=== PATIENT | female | born 1960 | race Caucasian/White ===

== ENCOUNTER 2021-01-26 16:14 | Emergency (ER) | payer OTHER, SELFPAY ==
[2021-01-26 17:14] VITALS: BP 187/82; PULSE 90; RESP 18; TEMP 37.2; O2SAT 96; BMI 32.0
--- NOTE | 2021-01-26 17:32 | ED.GENADULT ---
HPI - General Adult General Chief complaint: General Medical Stated complaint: ?dehydration - sent by doctor Time Seen by Provider: 01/26/21 17:32 Source: patient Mode of arrival: ambulatory Limitations: no limitations History of Present Illness HPI narrative: Patient received Pietro Pietro vaccine 2 weeks ago was doing fine for 2 weeks started feeling nauseated with dry heaves for last 4 days feels weak with malaise. Denies any urinary symptoms no abdominal pain no cough no shortness of breath no fever/ chills Related Data Previous Rx's Medication Instructions Recorded ondansetron 4 mg PO Q6-8H PRN #5 tab 01/26/21 Allergies Allergy/AdvReac Type Severity Reaction Status Date / Time levofloxacin [Levaquin] Allergy Unknown joint Verified 03/06/16 00:00 swelling and pain No Known Allergies Allergy Unverified 06/22/20 16:02 Codeine Phosphate Allergy Unknown Uncoded 09/23/12 00:00 Review of Systems Review of Systems: Constitutional : No Weight loss, No Fever, No Chills ENT/Mouth : No sore throat, No Rhinorrhea Eyes: No Eye Pain, No Swelling Cardiovascular : No Chest Pain, no palpitations Respiratory : No Cough, No Sputum, no shortness of breath Gastrointestinal : +Nausea, No Vomiting, No Diarrhea, No abdominal Pain, no black stools Genitourinary : No Dysuria, No Urinary Frequency Musculoskeletal : No joint pain, No Myalgias, No Joint Swelling Skin : No Skin Lesions, No rash Neuro : +Weakness, No Numbness, No Dizziness, No Headache Psych : No Anxiety/Panic, No Depression Heme/Lymph: No Bruising, No Lymphadenopathy Endocrine : No Polyuria, No Polydipsia All other systems reviewed and are negative [facility] Social History Social History Advance Directives: No Advance Directives Information Provided: Yes Physical Exam Vital Signs: Vital Signs: Last Vital Signs Temp 98.9 F 01/26/21 17:14 Pulse 90 01/26/21 17:14 Resp 18 01/26/21 17:14 BP 187/82 H 01/26/21 17:14 Pulse Ox 96 01/26/21 17:14 Body Mass Index 32.0 Appearance: Alert. Oriented X3. No acute distress. Eyes: Pupils equal, round and reactive to light. ENT: Pharynx normal. Neck: Normal inspection. Neck supple. CVS: Normal heart rate and rhythm. Pulses normal. Respiratory: No respiratory distress. Breath sounds normal. Abdomen: Soft and nontender. Bowel sounds are present, no mass palpable, no CVA tenderness Skin: Skin warm and dry. Normal skin color. Normal skin turgor. Extremities: No lower extremity edema. Neuro: Oriented X 3. No motor deficit. No sensory deficit. Medical Decision Making MDM Narrative Medical decision making narrative: Patient nonspecific nausea no vomiting urine is negative repeat COVID is negative benign presentation abdomen soft nontender will discharge her home on Zofran likely viral etiology Lab Data Lab results reviewed: Yes I reviewed the patient's lab results. Labs: Lab Results 01/26/21 01/26/21 Range/Units 18:03 18:04 Urine Color YELLOW Urine Appearance CLEAR Urine pH 7.0 (5.0-8.0) Ur Specific [place] 1.015 (1.005-1.025) Urine Protein NEG (NEG-TRACE) MG/DL Urine Glucose (UA) NEG (NEG) MG/DL Urine Ketones NEG (NEG) MG/DL Urine Blood NEG (NEG) Urine Nitrite NEG (NEG) Ur Leukocyte Esterase NEG (NEG) COVID-19 (EDGAR) Negative (Negative) COVID-19 Clin Com See Note Discharge Plan Discharge Clinical Impression: Nausea & vomiting Qualifiers: Vomiting type: unspecified Vomiting Intractability: non-intractable Qualified Code(s): R11.2 - Nausea with vomiting, unspecified Patient Disposition: Home, Self-Care Instructions: Acute Nausea and Vomiting (ED) Additional Instructions: His symptoms are nonspecific likely viral in etiology. Nausea medication as advised drink plenty of fluids Prescriptions: New ondansetron 4 mg tablet,disintegrating 4 mg PO Q6-8H PRN (Reason: nausea and vomiting) Qty: 5 RF: 0
[2021-01-26 18:32] LABS: Glucose Urine UA NEG (NEG); Leukocyte Esterase Urine NEG (NEG); Nitrite Urine NEG (NEG); Specific Gravity - Urine 1.015 (1.005-1.025); Urine Blood NEG (NEG); Urine Ketones NEG (NEG); Urine Protein NEG (NEG-TRACE)
[2021-01-26 18:33] LABS: Appearance Urine CLEAR; Color Urine YELLOW
[2021-01-26 18:37] LABS: COVID-19 Test Negative (Negative)
== END 2021-01-26 19:22 | disposition home or self-care (01) ==
PROVIDERS: Emergency Provider Internal Medicine; PCP Hospitalist
DX: R11.2 Nausea with vomiting, unspecified (principal); Z20.822 Contact with and (suspected) exposure to COVID-19
CPT/HCPCS: 36415; 81003; 87635; 99283

== ENCOUNTER 2021-07-31 09:43 | Outpatient (REF) | payer OTHER, SELFPAY ==
[2021-08-01 11:26] LABS: Immunoglobulin A 205 mg/dL (47-310)
[2021-08-02 16:11] LABS: Transglutaminase Ab IgG <1.0 U/mL; Transglutaminase IgA <1.0 U/mL
[2021-08-04 10:06] LABS: Gliadin Deamidated IgA Ab 1.7 U/mL; Gliadin Deamidated IgG Ab <1.0 U/mL
[2021-08-04 11:51] LABS: Endomysial IgA Antibody Negative (Negative)
== END 2021-07-31 09:44 | disposition home or self-care (01) ==
LOC: HO.10HDL 09:43
PROVIDERS: Visit Provider Internal Medicine
DX: K58.8 Other irritable bowel syndrome (principal)
CPT/HCPCS: 36415; 82784; 83516; 86255; 86256

== ENCOUNTER 2021-08-20 08:44 | Day surgery (SDC) | payer OTHER, SELFPAY ==
[2021-08-14 10:55] VITALS: BMI 31.4
[2021-08-14 11:50] VITALS: BMI 31.1
[2021-08-20 09:20] VITALS: BP 118/64; PULSE 86; RESP 16; TEMP 36.9; O2SAT 99
[2021-08-20] MEDS: Lactated Ringers 1,000 ML 50 ML IVCONT (09:34)
--- NOTE | 2021-08-20 09:47 | P.CONAN_ITS ---
[facility] Past Medical History Medical History Anxiety and depression Hypothyroidism Insomnia Surgical History Surgical History Hx of colonoscopy History of Problems with Anesthesia: No Social History Social History Patient Tobacco Use Status: Never used Tobacco Use of substances other than those prescribed or required for medical reasons: No Are you DNR?: No Advance Directives: No Advance Directives Information Provided: Yes Advance Directives on File: No Meds Allergies Allergy/AdvReac Type Severity Reaction Status Date / Time codeine Allergy Unknown Verified 08/20/21 09:08 Active Medications: Current Medications Lactated Ringer's (Lr) 1,000 mls @ 50 mls/hr IVCONT .Q20H LARISSA Last Admin: 08/20/21 09:34 Dose: 50 mls/hr Documented by: Sodium Biphosphate/Sodium Phosphate (Sodium Phosphate,[place]-Dibasic 133 Ml Enema) 133 ml MT ONCE PRN PRN Reason: Poor Colonoscopy Prep Results Home Medications Medication Instructions Recorded Confirmed Last Taken Type citalopram 20 mg tablet 20 mg PO DAILY 08/14/21 08/20/21 08/20/21 08:00 History levothyroxine 75 mcg tablet 75 mcg PO DAILY 08/14/21 08/14/21 Unknown History (Levoxyl) trazodone 100 mg tablet 100 mg PO BEDTIME 08/14/21 08/14/21 Unknown History Exam Exam Date and Time: August 20, 2021 0947 Height,Weight and Vital Signs: Height 5 ft 2 in Weight 77.111 kg Last Vital Signs Temp 98.4 F 08/20/21 09:20 Pulse 86 08/20/21 09:20 Resp 16 08/20/21 09:20 BP 118/64 08/20/21 09:20 Pulse Ox 99 08/20/21 09:20 Airway Mallampati Class: II TM Dist: >3cm Neck ROM: Full Loose/Missing/Broken Teeth: No Heart: RRR Lungs: CTA Assessment and Plan Assessment Anesthesia Assessment: Anesthesia Plan Discussed and Chart Reviewed Final Anesthetic Review History of Problems with Anesthesia: No NPO: Yes ASA Class: II Final Preanesthetic Review: Meds/Allgs Chart Reviewed, Consent Obtained/Reviewed and Anes Risks/Benef Reviewed Patient Risk: Low Procedure Risk: Low Anesthetic Plan Anesthetic Plan: MAC: Disposition: Standard PACU
[2021-08-20 11:57] VITALS: BP 109/54; PULSE 84; RESP 13; TEMP 36.4; O2SAT 99
--- NOTE | 2021-08-20 11:58 | P.BOP_ITS ---
Brief Operative Note Date of Service: 08/20/21 Pre-op diagnosis: Screening, Irregular BM's Post-op diagnosis: other (R/O Microscopic colitis, Diverticulosis) Procedure: Colonoscopy to the cecum and TI with biopsies Surgeon: Yonny Najera Anesthesia: MAC Was an [employer] used for this Procedure?: No Estimated blood loss (mL): 3.0 Pathology: other (A. Ascending colon B. Descending colon) Condition: stable Disposition: PACU
[2021-08-20 12:13] VITALS: BP 116/66; PULSE 75; RESP 16; TEMP 36.4; O2SAT 100
--- NOTE | 2021-08-20 12:23 | OP_ITS ---
SURGEON: Yonny Najera MD INDICATIONS: The patient presents for evaluation of colorectal cancer screening and irregular bowel movements. Full consent has been obtained from her for this, including risks of bleeding and perforation. PREOPERATIVE DIAGNOSIS: POSTOPERATIVE DIAGNOSIS: PROCEDURE PERFORMED: Colonoscopy to cecum and terminal ileum with biopsies. ESTIMATED BLOOD LOSS: COMPLICATIONS: ANESTHESIA: Monitored anesthesia care. ASSISTANTS: SPECIMENS: PREOPERATIVE DIAGNOSES: Colorectal cancer screening and irregular bowel movements. POSTOPERATIVE DIAGNOSES: Colorectal cancer screening and irregular bowel movements, diverticulosis, rule out microscopic colitis, small internal hemorrhoids. DESCRIPTION OF PROCEDURE: The patient was placed in the left lateral decubitus position. The digital rectal exam revealed no abnormalities. The Olympus video pediatric colonoscope was entered into the rectum and advanced easily to the cecum. Once in the cecum, I did identify normal-appearing cecal pouch with appendiceal orifice and a normal-appearing ileocecal valve. The terminal ileum was cannulated and appeared normal. Scope was withdrawn back in the colon. The entire cecum and ileocecal valve appeared normal. The scope was slowly withdrawn assessing all mucosal surfaces carefully. Preparation was excellent. I did not visualize any sign of polyps, colitis, nor angiodysplasia. There was a mild amount of sigmoid diverticulosis. I did obtain random biopsies in the ascending and descending colon to rule out microscopic colitis. In the rectum, scope was retroflexed visualizing some small internal hemorrhoids, but no other pathology. The rectal mucosa appeared normal. The scope was straightened out and withdrawn from the patient. She tolerated the procedure well and was returned to recovery area in stable condition. IMPRESSION: 1. Mild sigmoid diverticulosis. 2. Small internal hemorrhoids. 3. Rule out microscopic colitis. PLAN: The results of the biopsies will be checked. At this point, she is doing well, but still has somewhat irregular bowel movements. I do suspect this reflects some irritable bowel syndrome in relation to the gastroenteritis she had earlier in the year. I did advise her to try some Metamucil or Citrucel fiber supplements on a regular basis with plenty of water. She should directly have another colonoscopy in 10 years for screening. She could otherwise see me on a p.r.n. basis. MD JOSEP Karimi/CORRY / [phone]
== END 2021-08-20 12:55 | disposition home or self-care (01) ==
PROVIDERS: PCP Hospitalist; Visit Provider Internal Medicine
PROC: 0DJD8ZZ Inspection of Lower Intestinal Tract, Via Natural or Artificial Opening Endoscopic (ICD-10-PCS; CPT 45378; principal; 2021-08-20 10:20)
DX: Z12.11 Encounter for screening for malignant neoplasm of colon (principal); K58.8 Other irritable bowel syndrome; K57.30 Diverticulosis of large intestine without perforation or abscess without bleeding; K64.8 Other hemorrhoids; F41.1 Generalized anxiety disorder; E03.9 Hypothyroidism, unspecified; Z80.1 Family history of malignant neoplasm of trachea, bronchus and lung; Z80.0 Family history of malignant neoplasm of digestive organs; Z79.899 Other long term (current) drug therapy
CPT/HCPCS: 45380; 88305

== ENCOUNTER 2023-11-20 12:04 | Emergency (ER) | payer OTHER, SELFPAY ==
[2023-11-20 12:13] VITALS: BP 134/72; PULSE 93; RESP 20; TEMP 36.3; O2SAT 97; BMI 28.3
--- NOTE | 2023-11-20 12:13 | ED_ITS ---
HPI - General Adult General Chief complaint: Abdominal Pain Stated complaint: Abd pain Related Data Home Medications Medication Instructions Recorded Confirmed citalopram 20 mg tablet 20 mg PO DAILY 08/14/21 08/20/21 levothyroxine 75 mcg tablet 75 mcg PO DAILY 08/14/21 08/14/21 (Levoxyl) trazodone 100 mg tablet 100 mg PO BEDTIME 08/14/21 08/14/21 Previous Rx's Medication Instructions Recorded ondansetron 4 mg disintegrating 4 mg PO Q6-8H PRN nausea and 01/26/21 tablet vomiting #5 tabs Allergies Allergy/AdvReac Type Severity Reaction Status Date / Time codeine Allergy Unknown Verified 11/20/23 12:13 PMFSH Past Medical History Medical History Anxiety and depression Hypothyroidism Insomnia Surgical History Hx of colonoscopy Social History Social History Patient Tobacco Use Status: Never used Tobacco Advance Directives: No Physical Exam ED Vital Signs: BMI result Body Mass Index 28.3 Course Course Course Narrative: This is a rapid medical exam: Additional HPI, ROS, PE not included below will be deferred to primary provider. Patient is a 62-year-old female presenting to the ED with complaint of LLQ abdominal pain since Friday. Denies nausea, vomiting, diarrhea. Referred to ED by Dr. Najera. Denies fever. Plan: labs, UA, CT Medications Administered Discontinued Medications Generic Name Dose Route Start Last Admin Trade Name Tomas PRN Reason Stop Dose Admin Acetaminophen 975 mg 11/20/23 14:14 11/20/23 14:16 Acetaminophen 325 Mg Tablet PO 11/20/23 14:15 975 mg ONCE ONE Administration Medical Decision Making Lab Data 11/20/23 12:31 11/20/23 12:31 Labs: Lab Results 11/20/23 11/20/23 Range/Units 12:31 16:18 WBC 8.1 (4.8-10.8) X10*3/uL RBC 4.14 L (4.20-5.50) X10*6/uL Hgb 12.7 (12.0-16.0) g/dl Hct 36.7 L (37.0-47.0) % MCV 88.6 (80.0-98.0) fL MCH 30.7 (27.0-33.0) pg MCHC 34.6 (31.0-35.0) g/dl RDW 12.7 (11.0-16.0) % Plt Count 253 (160-400) X10*3/uL MPV 9.6 (9.4-12.3) fL Immature Gran % (Auto) 0.2 (0.0-0.4) % Neut % (Auto) 72.3 (45-73) % Lymph % (Auto) 20.0 (20-40) % [place] % (Auto) 6.2 (2-11) % Eos % (Auto) 0.9 (0-4) % Baso % (Auto) 0.4 (0-2) % Lymph # (Auto) 1.6 (1.2-4.9) X10*3/uL [place] # (Auto) 0.5 (0.1-1.2) X10*3/uL Eos # (Auto) 0.1 (0.0-0.4) X10*3/uL Baso # (Auto) 0.0 (0.0-0.2) X10*3/uL Abs Immat Gran (auto) 0.02 (0.00-0.03) X10*3/uL Absolute Neuts (auto) 5.9 (2.0-8.3) x10*3/uL Absolute Nucleated RBC 0.000 (0.0-0.012) X10*3/uL Nucleated RBC % (auto) 0.0 (0.0-0.2) /100WBC Sodium 135 (135-145) mmol/L Potassium 3.9 (3.3-5.1) mmol/L Chloride 101 (96-108) mmol/L Carbon Dioxide 27 (22-29) mmol/L Anion Gap 11 L (12-20) BUN 16 (9-16) mg/dL Creatinine 0.84 (0.5-1.4) mg/dL Estim Creat Clear Calc 64.5 Estimated GFR > 60 Random Glucose 97 (60-115) mg/dL Calcium 9.5 (8.4-10.2) mg/dL Total Bilirubin 0.5 (0.0-1.0) mg/dL AST 16 (5-31) U/L ALT 14 (0-31) U/L Alkaline Phosphatase 77 (39-117) U/L Total Protein 7.3 (6.5-8.0) g/dL Albumin 4.2 (3.5-5.0) g/dL Urine Color Yellow Urine Appearance Clear Urine pH 6.5 (5.0-9.0) Ur Specific [place] 1.010 (1.005-1.025) Urine Protein Negative (Neg-Trace) mg/dL Urine Glucose (UA) Negative (Negative) mg/dL Urine Ketones Trace (Negative) mg/dL Urine Blood Negative (Negative) Urine Nitrite Negative (Negative) Ur Leukocyte Esterase Negative (Negative) Discharge Plan Discharge Clinical Impression: Abdominal pain Patient Disposition: Left W/O Completing Treatment Prescriptions: No Action ondansetron 4 mg tablet,disintegrating 4 mg PO Q6-8H PRN (Reason: nausea and vomiting) Qty: 5 0RF levothyroxine [Levoxyl] 75 mcg Tablet 75 mcg PO DAILY citalopram 20 mg Tablet 20 mg PO DAILY trazodone 100 mg Tablet 100 mg PO BEDTIME Discharge Date/Time: 11/20/23 20:35
[2023-11-20 12:35] LABS: MANUAL DIFF FLAG NO
[2023-11-20 12:37] LABS: Basophils Percent Auto 0.4 % (0-2); Eosinophils Absolute Auto 0.1 X10*3/uL (0.0-0.4); Eosinophils Percent Auto 0.9 % (0-4); Hematocrit 36.7 % (37.0-47.0); Hemoglobin 12.7 g/dl (12.0-16.0); Imm Gran Abs Auto 0.02 X10*3/uL (0.00-0.03); Imm Gran Pct Auto 0.2 % (0.0-0.4); Lymphocytes Absolute Auto 1.6 X10*3/uL (1.2-4.9); Mean Corpuscular HGB Conc 34.6 g/dl (31.0-35.0); Mean Corpuscular Hemoglobin 30.7 pg (27.0-33.0); Mean Corpuscular Volume 88.6 fL (80.0-98.0); Mean Platelet Volume 9.6 fL (9.4-12.3); Monocytes Absolute Auto 0.5 X10*3/uL (0.1-1.2); Monocytes Percent Auto 6.2 % (2-11); Neutrophils Absolute Auto 5.9 x10*3/uL (2.0-8.3); Neutrophils Percent Auto 72.3 % (45-73); Platelet Count 253 X10*3/uL (160-400); Red Blood Count 4.14 X10*6/uL (4.20-5.50); Red Cell Distribution Width 12.7 % (11.0-16.0); White Blood Count 8.1 X10*3/uL (4.8-10.8)
[2023-11-20 12:53] LABS: Alanine Aminotransferase 14 U/L (0-31); Albumin Level 4.2 g/dL (3.5-5.0); Alkaline Phosphatase 77 U/L (39-117); Anion Gap 11 (12-20); Aspartate Amino Transferase 16 U/L (5-31); Bilirubin Total 0.5 mg/dL (0.0-1.0); Blood Urea Nitrogen 16 mg/dL (9-16); Calcium 9.5 mg/dL (8.4-10.2); Carbon Dioxide 27 mmol/L (22-29); Chloride 101 mmol/L (96-108); Creatinine Clr Calc Pharmacy 64.5; Estimated Glomerular Filt Rate > 60; Glucose Random 97 mg/dL (60-115); Potassium 3.9 mmol/L (3.3-5.1); Sodium 135 mmol/L (135-145); Total Protein 7.3 g/dL (6.5-8.0)
[2023-11-20] MEDS: Acetaminophen 325 MG TABLET 975 MG PO (14:16)
[2023-11-20 14:17] VITALS: RESP 18
--- NOTE | 2023-11-20 16:23 | MHC.EDTECH ---
Patient urine sample collected and sent to lab .
[2023-11-20 16:25] LABS: Appearance Urine Clear; Color Urine Yellow; Glucose Urine UA Negative (Negative); Leukocyte Esterase Urine Negative (Negative); Nitrite Urine Negative (Negative); PH 6.5 (5.0-9.0); Urine Blood Negative (Negative); Urine Ketones Trace mg/dL (Negative); Urine Protein Negative (Neg-Trace)
== END 2023-11-20 20:35 | disposition left against medical advice (07) ==
PROVIDERS: Registered Nurse Emergency; Emergency Provider Emergency Medicine; PCP Family Medicine
DX: R10.32 Left lower quadrant pain (principal); Z53.21 Procedure and treatment not carried out due to patient leaving prior to being seen by health care provider
CPT/HCPCS: 36415; 80053; 81003; 85025; 99283